=== PATIENT | male | born 1950 | race Caucasian/White ===

== ENCOUNTER → 2023-06-21 | Outpatient (CLI) | payer OTHER ==
[~2023-06-21] MED LIST: AZIT500T4 PO; CEPH500B PO; CETI10TA87 PO; OSEL75 PO; PRED20TA3 PO; TAMS-1 PO
== END | disposition home or self-care (01) ==
LOC: RAH 10:15
PROVIDERS: ATTEND Internal Medicine
DX: J20.9 Acute bronchitis, unspecified (principal); M47.815 Spondylosis without myelopathy or radiculopathy, thoracolumbar region
CPT/HCPCS: 71046

== ENCOUNTER → 2025-02-15 | Outpatient (CLI) | payer OTHER ==
[~2025-02-15] MED LIST changes: -TAMS-1 PO; +TAMS-55 PO
--- NOTE | 2025-02-15 15:07 | HMCIMG ---
MRI of the lumbar spine without gadolinium Clinical Information: PAIN RUNS TO R SIDE Comparison: None Technique: Sagittal T1 and T2 FSE, Sagittal STIR and Sagittal proton density images were completed through the lumbosacral spine. Axial T1, T2 and proton density images were also acquired. FINDINGS: No fractures or dislocations are identified. Vertebral body height and disc height is preserved at all levels. The bone marrow signal is normal for age. The spinal canal contents are preserved. The conus terminates at a normal level at T12 to L2. The paraspinal muscles and other tissues show no significant abnormalities. Evaluation of the lumbar spine by level: T12-L1: There is no spinal canal stenosis. No disc herniation or bulge is noted. There is no neural foraminal stenosis, impingement, or narrowing. L1-L2: There is no spinal canal stenosis. There is a mild central zone disc protrusion. There is no neural foraminal stenosis, impingement, or narrowing. L2-L3: There is no spinal canal stenosis. There is a mild central zone disc protrusion. There is no neural foraminal stenosis, impingement, or narrowing. L3-L4: There is no spinal canal stenosis. There is a mild central zone disc protrusion. There is no neural foraminal stenosis, impingement, or narrowing. L4-L5: Prominent central zone disc protrusion with mild grade 1 anterolisthesis of L4 over L5 caused by degeneration of the facet joints. Hypertrophy of the ligamentum flavum. As a result of all of these findings, there is spinal canal stenosis, neural foraminal narrowing and bilateral nerve root impingement. L5-S1: There is no spinal canal stenosis. There is a mild central zone disc protrusion. There is no neural foraminal stenosis, impingement, or narrowing. Impression: Spinal canal stenosis and nerve root impingement at L4-5. Milder bulges elsewhere.
== END | disposition home or self-care (01) ==
LOC: RAH 14:18
PROVIDERS: ATTEND Internal Medicine
DX: M48.061 Spinal stenosis, lumbar region without neurogenic claudication (principal); M43.16 Spondylolisthesis, lumbar region; M51.16 Intervertebral disc disorders with radiculopathy, lumbar region
CPT/HCPCS: 72148